=== PATIENT | female | born 1965 | race Caucasian/White ===

== ENCOUNTER 2017-07-13 08:53 | Inpatient (IN) | payer OTHER ==
[~2017-07-13] VITALS: Ht 152.4 cm; Wt 64.4 kg
--- NOTE | ~2017-07-13 | HC ---
[facility] [place] [address] CONSULTATION Name: MANUEL WALL Room #: 458-P ADM IN M.R.#: [id number] Admission: 07/13/17 Attend Phys: Hiren Weiss MD Discharge: Date of : 63 Report #: [id number] THIS REPORT FOR: //name// CC: Hiren BEEBENEY HILARIAMELECIO DATE OF SERVICE: 07/13/2017 TYPE OF REPORT: General surgery consultation. REFERRING PROVIDER: Hiren Weiss M.D. REASON FOR CONSULTATION: Small-bowel obstruction. HISTORY OF PRESENT ILLNESS: The patient is a 51-year-old female with a past history of hypertension and breast cancer that became recurrent in 2010 and metastatic to her bones, hips and microscopic lung implants. The patient has been seen at numerous facilities including [facility] and [facility] most recently. She underwent placement of a stent within her common bile duct, which was reportedly removed and she underwent placement of a metal stent in her duodenum this past Tuesday. Unfortunately, the patient has developed acute onset abdominal pain, distention and nausea and vomiting for which she presented to the emergency room for evaluation. The patient's labs were found to be largely within normal limits, but her CT scan shows markedly dilated proximal small bowel with soft tissue within the right lower quadrant as the cause of the obstruction, which is possibly peritoneal metastases. In addition, she has a large loculated fluid collection along the anterior aspect of the left psoas muscle into the pelvis concerning for a lymphocele, peritoneal inclusion cyst or an abscess. The patient has since been admitted, I am asked to evaluate from a surgical standpoint. PAST MEDICAL HISTORY: Hypertension, breast cancer with recurrence and is now metastatic. She has had three C-sections as well as a cholecystectomy and her recent stenting of her common bile duct and duodenum. HOME MEDICATIONS: Extensive and include Percocet, hydrochlorothiazide, metformin, calcium, vitamin D, denosumab, leuprolide, ibuprofen, Dilaudid, Zyrtec, Flonase, Benadryl, multivitamin, Prilosec, guaifenesin, everolimus, exemestane, cholecalciferol and potassium. ALLERGIES: IV CONTRAST, which causes hives; SULFA, which causes a rash and HYDROCODONE, which causes nausea. SOCIAL HISTORY: The patient does not utilize tobacco or illicit drugs and does drink alcohol socially and never to excess. [address] [address] CONSULTATION Name: MANUEL WALL Room #: 458-P [facility] IN M.R.#: [id number] Admission: 07/13/17 Attend Phys: Hiren Weiss MD Discharge: Date of : 63 Report #: [id number] FAMILY HISTORY: Reviewed and noncontributory. REVIEW OF SYSTEMS: GENERAL: The patient denies nocturnal fevers or chills. HEENT: No change in vision or change in hearing. NECK: No swelling or difficulty swallowing. HEART: No chest pain or palpitations. LUNGS: No cough or shortness of breath. ABDOMEN: Positive nausea and vomiting. GENITOURINARY: No dysuria or hematuria. ENDOCRINE: No polyuria or polydipsia. HEMATOLOGIC: No history of bleeding or easy bruising. EXTREMITIES: No history weakness or limited range of motion. NEUROLOGICAL: No history of syncope or near-syncopal episodes. SKIN AND INTEGUMENT: No history of abnormal lesions or moles. PSYCHIATRIC: No history of anxiety or depression. PHYSICAL EXAMINATION: VITAL SIGNS: Temperature 98.1, pulse 110, respirations 18 and blood pressure 141/96. She stands 5 feet 3 inches tall and weighs 174 pounds. GENERAL: Alert and oriented, in no acute distress. HEENT: Normocephalic and atraumatic. Pupils equal, round and reactive to light. NG tube is in the left naris, draining bilious material. NECK: Supple, without lymphadenopathy. Trachea midline. HEART: Tachycardic but regular rhythm. LUNGS: Clear to auscultation bilaterally. ABDOMEN: Soft, distended and minimally tender in the mid abdominal region but no guarding, no rebound and no peritoneal signs or symptoms. GENITOURINARY: Normal external female genitalia. EXTREMITIES: No clubbing, cyanosis or edema. NEUROLOGICAL: Cranial nerves 2 through 12 are grossly intact. PSYCHIATRIC: Normal mood and affect. SKIN AND INTEGUMENT: No abnormal lesions or moles. LABORATORY AND X-RAY DATA: CBC shows white blood cell count of 11.5 thousand; hemoglobin 11.6 and platelets 547,000. Her creatinine is 0.8. Liver function enzymes are normal except her alkaline phosphatase is elevated at 373. Lactic acid normal at 1.2. CT scan of the abdomen and pelvis without contrast again shows markedly dilated fluid filled loops of small bowel with duodenal and biliary stents in place. She does have a transition point in the right lower quadrant with a soft tissue density concerning for metastatic implant as the causative factor of her bowel obstruction. She also has the fluid collection in the left lower abdomen anterior to the psoas muscle. ASSESSMENT AND PLAN: A 51-year-old female with metastatic breast cancer, who [address] [address] CONSULTATION Name: MANUEL WALL Room #: 458-P [facility] IN .Josie.#: [id number] Admission: 07/13/17 Attend Phys: Hiren Weiss MD Discharge: Date of : 63 Report #: [id number] recently underwent stenting of her duodenum and common bile ducts, presumably for obstructive findings at an outside hospital. We will attempt to obtain those records and it is quite likely that her obstructive process from her metastatic disease could be the causative factor of this recent bowel obstruction as well. The patient does have a nasogastric tube in place, which should remain to low intermittent suction for decompression and we will continue conservative care with IV fluid rehydration, decompression with n.p.o. status and the nasogastric tube and serial abdominal exams and abdominal x-rays. Hopefully, the patient does clear this with conservative measures; however, she may necessitate operative intervention at some point if she fails to progress. I did spend approximately 70 minutes with the patient and her at the bedside today as well as discussing with the Gastroenterology service the proposed plan above and specific reviewed and CT scan images with the patient and her in detail. I sincerely appreciate this consult. I will follow closely and leave any further recommendations in the patient's chart as appropriate. <ELECTRONICALLY SIGNED> By: Vinh Crespo MD, FACS 07/14/17 [id number] Vinh Crespo MD, FACS /nt
[~2017-07-13 08:53] MED LIST: BENICAR HCT 401 EAC1 PO; FLEXERIL; IBUPROFEN 800800 M1 PO; LOVENOX; MORPHINE SULFAT15 M3; NAPROSYN500 MG PO; PERCOCET 10-321 EACH; POTASSIUM CHLO10 ME1 OR; VITAMIN D-32000 UNIT OR
[2017-07-13 09:01] VITALS: BP 158/110
[2017-07-13] MEDS ORDERED: HYDROCHLOROTHIA25 M2 PO (09:33)
[2017-07-13] MEDS ORDERED: METFORMIN HCL500 MG PO (09:33)
[2017-07-13] MEDS ORDERED: GLUCOSAMINE HC500 MG PO (09:34)
[2017-07-13] MEDS ORDERED: [UNRECOGNIZED DRUG - OTHER] PO (09:35)
[2017-07-13] MEDS ORDERED: CALCIUM MAGNES1 EACH PO (09:35)
[2017-07-13] MEDS ORDERED: LUPRON DEPOT11.25 MG IM (09:36)
[2017-07-13] MEDS ORDERED: XGEVA120 MG/1.7 INJECTION (09:36)
[2017-07-13] MEDS ORDERED: ZYRTEC10 M5 PO (09:37)
[2017-07-13] MEDS ORDERED: BENADRYL25 MG PO (09:37)
[2017-07-13] MEDS ORDERED: FLONASE 0.05%50 MCG NASAL (09:37)
[2017-07-13] MEDS ORDERED: DILAUDID 2 MG TA2 MG PO (09:37)
[2017-07-13] MEDS ORDERED: IBUPROFEN 200200 M1 PO (09:37)
[2017-07-13] MEDS ORDERED: AIRBORNE EFFER1 EACH PO (09:38)
[2017-07-13] MEDS ORDERED: UNICOMPLEX M TA1 TA1 PO (09:38)
[2017-07-13] MEDS ORDERED: MUCINEX100 MG PO (09:39)
[2017-07-13] MEDS ORDERED: ALKA-SELTZER G1 EAC1 PO (09:39)
[2017-07-13] MEDS ORDERED: PRILOSEC 10MG C10 MG PO (09:39)
[2017-07-13] MEDS ORDERED: AFINITOR2.5 MG PO (09:40)
[2017-07-13] MEDS ORDERED: AROMASIN25 MG PO (09:40)
[2017-07-13 10:09] LABS: ABSOLUTE NEUTROPHILS 9.9 thou/uL (1.4-8.2); BASOPHILS 0.8 % (0.0-2.0); EOSINOPHILS 0.1 % (0.0-3.0); HEMATOCRIT 35.2 % (37.0-47.0); HEMOGLOBIN 11.6 gm/dL (12.0-15.0); LYMPHOCYTES 10.2 % (24.0-44.0); MCH 25.1 pg (26.0-34.0); MCV 76.3 fL (80.0-100.0); MONOCYTES 2.5 % (1.0-8.0); PLATELET COUNT 547 thou/uL (150-400); POLYS 86.4 % (36.0-66.0); RBC 4.62 mil/uL (4.20-5.00); RDW 19.2 % (10.5-14.5); WBC 11.5 thou/uL (4.0-11.0)
[2017-07-13 10:18] LABS: ANION GAP 9 mmol/L (7-16); BUN 20 mg/dL (7-18); CALCIUM 9.9 mg/dL (8.5-10.1); CHLORIDE 100 mmol/L (98-107); CO2 29 mmol/L (21-32); CREATININE 0.8 mg/dL (0.6-1.0); GLUCOSE 209 mg/dL (74-106); POTASSIUM 3.3 mmol/L (3.5-5.1); SODIUM 138 mmol/L (136-145)
[2017-07-13 10:26] LABS: ALBUMIN 3.3 g/dL (3.4-5.0); LIPASE 172 U/L (73-393); SGOT 37 U/L (15-37); SGPT 62 U/L (30-65); TOTAL BILIRUBIN 0.4 mg/dL (<0.1-1.0); TOTAL PROTEIN 8.7 g/dL (6.4-8.2); TROPONIN-I < 0.04 ng/mL (<0.06)
[2017-07-13 11:28] VITALS: BP 158/110
[2017-07-13 14:02] VITALS: BP 168/98
[2017-07-13 14:25] VITALS: BP 134/93
[2017-07-13 15:22] LABS: URINE BILIRUBIN NEGATIVE (Negative); URINE BLOOD NEGATIVE (Negative); URINE CLARITY CLEAR; URINE COLOR YELLOW; URINE GLUCOSE-RANDOM* NEGATIVE (Negative); URINE KETONES 1+ (Negative); URINE LEUKOCYTES-REFLEX NEGATIVE (Negative); URINE NITRITE-REFLEX NEGATIVE (Negative); URINE PROTEIN (DIPSTICK) 1+ (Negative); URINE UROBILINOGEN 0.2 E.U./dl (0.2-1.0)
[2017-07-13 15:30] LABS: BACTERIA-REFLEX 1-9 Few /HPF (None Seen); CASTS None Seen /LPF (None Seen); CRYSTALS None Seen /LPF (None Seen); MUCUS >6 Heavy strn/LPF (None Seen); SQUAMOUS >10 Many /LPF (0-3); URINE RBC 3-10 Few /HPF (0-2); URINE WBC-REFLEX 0-5 Rare /HPF (0-5)
[2017-07-13 15:49] VITALS: BP 141/96
[2017-07-13 19:09] VITALS: BP 131/86
[2017-07-14 05:00] VITALS: BP 138/88
[2017-07-14 05:19] LABS: ABSOLUTE NEUTROPHILS 4.1 thou/uL (1.4-8.2); BASOPHILS 0.5 % (0.0-2.0); EOSINOPHILS 0.6 % (0.0-3.0); HEMATOCRIT 30.6 % (37.0-47.0); HEMOGLOBIN 10.1 gm/dL (12.0-15.0); LYMPHOCYTES 24.9 % (24.0-44.0); MCH 25.6 pg (26.0-34.0); MCV 77.7 fL (80.0-100.0); MONOCYTES 10.7 % (1.0-8.0); POLYS 63.3 % (36.0-66.0); RBC 3.94 mil/uL (4.20-5.00); RDW 19.7 % (10.5-14.5); WBC 6.5 thou/uL (4.0-11.0)
[2017-07-14 05:23] LABS: PLATELET COUNT 437 thou/uL (150-400)
[2017-07-14 05:41] LABS: CALCIUM 8.4 mg/dL (8.5-10.1); CREATININE 0.7 mg/dL (0.6-1.0); MAGNESIUM 2.3 mg/dL (1.8-2.4); POTASSIUM 3.6 mmol/L (3.5-5.1)
[2017-07-14 08:00] VITALS: BP 120/85
[2017-07-14 15:56] VITALS: BP 128/83
[2017-07-14 21:06] VITALS: BP 133/80
[2017-07-15 03:58] VITALS: BP 127/82
[2017-07-15 04:48] LABS: CALCIUM 8.1 mg/dL (8.5-10.1); CREATININE 0.6 mg/dL (0.6-1.0); POTASSIUM 3.5 mmol/L (3.5-5.1)
[2017-07-15 04:50] LABS: HEMOGLOBIN 9.1 gm/dL (12.0-15.0); MCH 25.2 pg (26.0-34.0); MCHC 32.6 g/dL (28.0-37.0); MCV 77.5 fL (80.0-100.0); RBC 3.61 mil/uL (4.20-5.00); RDW 19.6 % (10.5-14.5); WBC 5.8 thou/uL (4.0-11.0)
[2017-07-15 07:24] VITALS: BP 133/92
[2017-07-15 11:27] VITALS: BP 133/92
[2017-07-15 16:37] VITALS: BP 147/69
[2017-07-15 19:50] VITALS: BP 144/89
[2017-07-16 03:56] VITALS: BP 141/85
[2017-07-16 06:16] LABS: HEMATOCRIT 33.1 % (37.0-47.0); HEMOGLOBIN 10.8 gm/dL (12.0-15.0); MCH 25.1 pg (26.0-34.0); MCHC 32.7 g/dL (28.0-37.0); MCV 76.8 fL (80.0-100.0); RBC 4.3 mil/uL (4.20-5.00); RDW 19.6 % (10.5-14.5); WBC 8.1 thou/uL (4.0-11.0)
[2017-07-16 06:25] LABS: CALCIUM 8.8 mg/dL (8.5-10.1); CREATININE 0.6 mg/dL (0.6-1.0); POTASSIUM 3.9 mmol/L (3.5-5.1)
[2017-07-16 08:00] VITALS: BP 145/103
[2017-07-16 12:52] VITALS: BP 145/103
[2017-07-16 16:00] VITALS: BP 162/102
[2017-07-16 19:38] VITALS: BP 139/86
[2017-07-17 03:25] VITALS: BP 141/92
[2017-07-17 08:00] VITALS: BP 124/67
[2017-07-17 15:48] VITALS: BP 141/84
[2017-07-18 07:26] LABS: HEMOGLOBIN 10.9 gm/dL (12.0-15.0); MCH 25.2 pg (26.0-34.0); MCHC 32.9 g/dL (28.0-37.0); MCV 76.6 fL (80.0-100.0); RBC 4.31 mil/uL (4.20-5.00); RDW 19.9 % (10.5-14.5); WBC 7.7 thou/uL (4.0-11.0)
[2017-07-18 07:34] LABS: CREATININE 0.6 mg/dL (0.6-1.0); POTASSIUM 3.5 mmol/L (3.5-5.1)
[2017-07-18 08:00] VITALS: BP 128/89
[2017-07-18 16:00] VITALS: BP 126/72
[2017-07-18 19:48] VITALS: BP 144/102
[2017-07-19 03:39] VITALS: BP 135/90
[2017-07-19 07:14] VITALS: BP 131/83
[2017-07-19 15:12] VITALS: BP 131/83
[2017-07-19 16:35] VITALS: BP 131/83
== END 2017-07-19 15:35 | disposition home or self-care (01) | DRG 388 ==
LOC: ER 08:53 → EROBS 10:41 → 4W 10:41 → ENTRNSPT 07-19 15:30 → EDTRNSPTSTS 07-19 15:32 → 4W 07-19 15:35
PROVIDERS: Hospitalist; Nurse Practitioner; Physician Assistant
DX: K56.609 Unspecified intestinal obstruction, unspecified as to partial versus complete obstruction (principal); E43 Unspecified severe protein-calorie malnutrition; E87.6 Hypokalemia; I10 Essential (primary) hypertension; Z92.3 Personal history of irradiation; Z85.3 Personal history of malignant neoplasm of breast; Z92.21 Personal history of antineoplastic chemotherapy; Z85.41 Personal history of malignant neoplasm of cervix uteri; Z90.49 Acquired absence of other specified parts of digestive tract; Z98.891 History of uterine scar from previous surgery; Z79.84 Long term (current) use of oral hypoglycemic drugs; Z79.899 Other long term (current) drug therapy; Z88.2 Allergy status to sulfonamides; Z88.8 Allergy status to other drugs, medicaments and biological substances; Z91.041 Radiographic dye allergy status
CPT/HCPCS: 10040